=== PATIENT | female | born 2000 | race American Indian/Alaskan Native ===

== ENCOUNTER 2021-05-13 01:20 | Emergency (ER) | payer MEDICAID, OTHER ==
[2021-05-13 01:37] VITALS: BP 109/74
[2021-05-13] MEDS ORDERED: IBUPROFEN 800 MG TAB PO ONE (02:40)
[2021-05-13] MEDS ORDERED: HYDROcodone/ACETAMINOPHEN 5-325 MG TAB PO ONE (02:40)
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
== END 2021-05-13 06:24 | disposition home or self-care (01) ==
LOC: ED 01:20
DX: S93.401A Sprain of unspecified ligament of right ankle, initial encounter (principal); M25.561 Pain in right knee; M25.562 Pain in left knee; V49.49XA Driver injured in collision with other motor vehicles in traffic accident, initial encounter; Y93.89 Activity, other specified; Y92.89 Other specified places as the place of occurrence of the external cause; Y99.8 Other external cause status
CPT/HCPCS: 99283